=== PATIENT | female | born 1960 | race Caucasian/White ===

== ENCOUNTER 2017-04-26 15:44 | Inpatient (IN) | payer OTHER ==
[~2017-04-26] VITALS: Ht 167.6 cm; Wt 92.3 kg
[~2017-04-26 15:44] MED LIST: CEPH500C3 PO; VIVELLE
--- NOTE | 2017-05-11 06:24 | MH ---
cc: JHONY LAZO M.D. DATE OF ADMISSION: 05/11/2017 ADMITTING DIAGNOSIS Lumbar spinal stenosis with instability. HISTORY This patient is a 57-year-old female with significant back, hip and leg pain. Investigative studies shows evidence of high-grade stenosis at the L4-5 level with associated instability. There is evidence of foraminal stenosis as well. The patient has significant hip and leg pain. She presents for surgical treatment. PAST MEDICAL HISTORY, SOCIAL HISTORY, FAMILY HISTORY, REVIEW OF SYSTEMS See attached notes. PHYSICAL EXAMINATION GENERAL: A 57-year-old female in moderate distress with her back, hip and leg. HEENT: Normocephalic, atraumatic. Pupils equal, round, reactive to light and accommodation. Extraocular motions intact. NECK: Supple. CHEST: Clear. HEART: Regular rate and rhythm. ABDOMEN: Soft, nontender with normoactive bowel sounds. MUSCULOSKELETAL EXAMINATION: Thoracolumbar spine with restricted motion, pain with range of motion. Ssikdymb-zgf-ryavx is positive. Motor examination shows mild weakness of the extensor hallucis longus. IMPRESSION 1. Lumbar spinal stenosis L4-5. 2. Lumbar radiculopathy. 3. Lumbar instability. PLAN Bilateral lumbar laminectomy L4-L5 from the left, lateral recess decompression, subtotal facet resection, posterior spinal fusion L4-5, posterolateral interbody fusion, interbody cage, instrumentation, bone grafting. CONSENT There are risks with surgery including infection, bleeding, loss of motion, continued pain, need for further surgery, neurologic and vascular injury. The patient understands these issues and wishes to press on with the surgery as outlined above. MD NIKO Castillo/SUNNY /11:08 PM /6:23 AM
[2017-05-11 11:25] VITALS: BP 125/83; PULSE 72; RESP 20; TEMP 98.6; O2SAT 99
[2017-05-11] MEDS ORDERED: ePHEDrine/NS 25 MG/5 ML SYR IV ONE (12:00)
[2017-05-11] MEDS ORDERED: ONDANSETRON HCL 4 MG/2 ML VIAL IV PUSH ONE (12:00)
[2017-05-11] MEDS ORDERED: NEOSTIGMINE 3 MG/3 ML SYR IV ONE (12:00)
[2017-05-11] MEDS ORDERED: PROPOFOL 200 MG/20 ML AMP IV ONE (12:00)
[2017-05-11] MEDS ORDERED: WELLTAB39 PO (12:16)
[2017-05-11] MEDS ORDERED: VIVE0.05 T-DERMAL (12:16)
[2017-05-11] MEDS ORDERED: ALPR.5 PO (12:16)
[2017-05-11] MEDS ORDERED: TRAM50TA PO (12:16)
[2017-05-11] MEDS ORDERED: INSULIN HUMAN REGULAR 1,000 UNITS/10 ML VIAL SQ PRN (12:30)
[2017-05-11] MEDS ORDERED: METOPROLOL TARTRATE 25 MG TAB PO PRN (12:30)
[2017-05-11] MEDS ORDERED: POVIDONE IODINE 5% (ANTISEPSIS KIT) 4 APPLICATIONS EACH NARE PRN (12:30)
[2017-05-11] MEDS ORDERED: SODIUM CHLORID 0.9% 500 ML IV PRN (12:30)
[2017-05-11] MEDS ORDERED: CHLORHEXIDINE GLUCONATE 2 % 1 PACK (2 CLOTHS) TOPICAL PRN (12:30)
[2017-05-11] MEDS ORDERED: LACTATED RINGER'S 1000 ML IV PRN (12:30)
[2017-05-11] MEDS ORDERED: SODIUM CHLOR 0.9% 250 ML INJ 250 ML ONE (12:38)
[2017-05-11] MEDS ORDERED: VANCOMYCIN HCL 1000 MG VIAL ONE (12:38)
[2017-05-11] MEDS ORDERED: ceFAZolin 2 GM PREMIX 50 ML IV SCH (12:45)
[2017-05-11] MEDS ORDERED: VANCOMYCIN 1000 MG/NS 250 ML (for <70 kg) IV SCH ×2 (12:45)
[2017-05-11] MEDS ORDERED: POVIDONE IODINE 7.5% SCRUB 118 ML BOTTLE TOPICAL SCH (12:45)
[2017-05-11] MEDS ORDERED: FAMOTIDINE 20 MG/2 ML VIAL ONE (14:48)
[2017-05-11] MEDS ORDERED: MIDAZOLAM HCL 2 MG/2 ML VIAL ONE ×2 (14:48→15:00)
[2017-05-11] MEDS ORDERED: GENTAMICIN SULFATE 80 MG/2 ML VIAL ONE (14:55)
[2017-05-11] MEDS ORDERED: fentaNYL CITRATE 250 MCG/5 ML AMP ONE (15:00)
[2017-05-11] MEDS ORDERED: ACETAMINOPHEN 1000 MG/100 ML VIAL IV ONE (15:01)
[2017-05-11] MEDS ORDERED: DEXAMETHASONE SOD PHOS 4 MG/ML VIAL ONE (15:01)
[2017-05-11] MEDS ORDERED: SOD PHOSPHATE/SOD BIPHOSPHATE (ADULT) ENEMA 133ML PR PRN (19:30)
[2017-05-11] MEDS ORDERED: ALUMINUM/MAGNESIUM/SIMETH 30 ML CUP PO PRN (19:30)
[2017-05-11] MEDS ORDERED: Post-op Orders (for Pharmacy) MISC XX ONE (19:30)
[2017-05-11] MEDS ORDERED: ONDANSETRON HCL 4 MG/2 ML VIAL IV PRN (19:30)
[2017-05-11] MEDS: LACTATED RINGER'S 1000 ML INJ 1,000 ML IV SCH ×2 (19:30→22:02)
[2017-05-11] MEDS ORDERED: SODIUM CHLORIDE 0.9% FLUSH 5 ML FLUSH IVF PRN (19:30)
[2017-05-11] MEDS ORDERED: MORPHINE SULFATE 8 MG/ML INJ IV PUSH PRN (19:30)
[2017-05-11] MEDS ORDERED: BISACODYL 10 MG SUPP RECTAL PRN (19:30)
[2017-05-11] MEDS ORDERED: NALOXONE HCL 0.4 MG/ML AMP IV PRN (19:30)
--- NOTE | 2017-05-11 19:33 | PD.OP ---
cc: Kishore Flynn. Operative Report Date of Surgery: May 11, 2017 Preoperative Diagnosis: Lumbar spinal stenosis, L4 5. Lumbar instability, L4 5. Extradural lesion, L4 5. Bilateral lumbosacral radiculopathy Postoperative Diagnosis: Same. Fracture left L4 inferior articular facet Procedure: Bilateral lumbar laminectomy from the left L4, L5 with resection of extradural lesion and bilateral lateral recess decompression. Subtotal facet resection left L4 5. Posterior spinal fusion, L4 5. Posterior spinal segmental instrumentation L4 5. Posterior lateral interbody fusion. Placement of interbody cage, L4 5. Major bone grafting of the lumbar spine. Use of dilation port and microscope Anesthesia: Gen. Surgeon: Kishore Flynn Slip Mixer(s): ADRIENNE Deutsch Operation and Findings: EBL: 200 ml NOTE: Debra Deutsch PA-C was present for the entire surgical procedure as my maintenance assistant. In my medical opinion her skill and care was necessary for proper management of this patient INDICATIONS: This patient is a 49-year-old female with significant back radiating leg pain with weakness. Studies shows evidence of significant widening of the facet joints at L4 5 associated with an extradural lesion creating a high-grade central and bilateral lateral recess stenosis at L4 5. The patient presents for the above procedure. INSTRUMENTATION: Spine wave PROCEDURE: The patient brought to the operating room and anesthetized the supine position. The patient positioned prone on the Duane frame on the Benedict table. All pressure points are protected. The back was scrubbed with alcohol followed by Hibiclens followed by ChloraPrep and draped sterilely and antibiotics were given within a routine time window. A timeout was done. Lateral radiographic images used to identify the proper level for the procedure. Compared care for the preoperative studies. Skin markings were made anticipating surgical treatment. A left paramedian incision was made. The lamina and facet joint was exposed. We used the dilating retractor which was positioned over this region. The microscope was rolled into the field for visualization. A high-speed bur was used to take the lamina down and doing a subtotal facet resection. There was a moderate to large central ganglion cyst which was extradural. This was adherent to the dura midline. We worked over the top and below and above this to create a dissection plane between the lesion and the dura. This was freed up completely and taken to the back table. This was sent down to pathology. A bilateral lateral recess stenosis was accomplished. The exiting and crossing nerve roots were completely decompressed. A total discectomy was accomplished. The disc space was prepared. All cartilaginous material from the disc space was removed. A combination of demineralized bone matrix and Nucel stem cells were mixed together on the back table. These were injected into the disc space. The cage was then placed according to assistant chief engineer's recommendation and deployed. Position was satisfactory. Additional bone graft was placed into the disc space. The outer edge of the facet joint was identified and prepared. Under fluoroscopic images, a bur was used to gain entrance into the pedicle followed by placement of a blunt probe, an awl and placement of proper length screws. Each screw was charged with electric current there are no abnormal potentials registered in either lower extremity. A proper length ritchie was fitted and attached and tightened according to assistant chief engineer's recommendation. The wound was irrigated copiously. Bone grafting was placed along the lateral gutter in the region of the transverse process across this level. This was closed in layers with #1 Vicryl, 2-0 Vicryl and running intradermal 3-0 Vicryl followed by Steri-Strips and benzoin. On the contralateral side a separate exposure was made. The outer edge of the facet joints were identified. A bur was used to gain entrance into the pedicle followed by placement of a probe and proper length screws. Each screw was charged with electric current and no abnormal potentials registered in either lower extremity. The wound was irrigated copiously. Bone graft placed along the transverse process across this level. It was closed in layers using #1 Vicryl, 2-0 Vicryl and running intradermal 3-0 Vicryl followed by Steri-Strips and benzoin. Intraoperative radiographs were obtained. No complication was appreciated. The patient had a sterile dressing applied. The patient was awakened and taken to recovery room in satisfactory condition. FINDINGS: There was evidence of a fracture of the inferior articular facet of L4 which was a surprise. This was an unstable joint related to the spondylolisthesis and the fracture. The extradural lesion was likely a ganglion cyst. This created a significant central stenosis. The final decompression was very satisfactory. The final cage placement and fusion was also very satisfactory. Kishore Flynn MD May 11, 2017 19:33
[2017-05-11] MEDS ORDERED: HYDR-3580 PO (19:35)
[2017-05-11] MEDS ORDERED: DO NOT ADM ANY ANTICOAGULANT DRUGS PRN (19:36)
[2017-05-11] MEDS ORDERED: MORPHINE SULFATE 4 MG/ML INJ ONE (19:46)
[2017-05-11] MEDS ORDERED: *morphine SULFATE 8 MG/ML PERIprocedure ONLY ONE (19:51)
--- NOTE | 2017-05-11 20:20 | RADRPT ---
EXAM DATE/TIME: 05/11/2017 18:55 [facility] COMPARISON: No previous studies available for comparison. INDICATIONS : L4-5 Fusion. MEDICAL HISTORY : Arrythmia. SURGICAL HISTORY : section. Hysterectomy. ENCOUNTER: Initial ACUITY: 1 day PAIN SCORE: Non-responsive. LOCATION: Lumbar spine. FINDINGS: 2 magnified C-arm spot views show bilateral transpedicular posterior fixation at L4-L5. There is an i ntervening bone graft device as well as bilateral vertical stabilizing bars. Good alignment. CONCLUSION: Limited images as detailed above. Rajeev Chowdhury Jr., MD on May 11, 2017 at 20:18 Board Certified Radiologist. This report was verified electronically.
[2017-05-11] MEDS: MORPHINE SULFATE 30 MG/30 ML PCA IV SCH (20:44)
[2017-05-11] MEDS ORDERED: ZOLPIDEM TARTRATE 5 MG TAB PO PRN (21:00)
[2017-05-11] MEDS: SODIUM CHLORIDE 0.9% FLUSH 5 ML FLUSH IVF SCH (21:00)
[2017-05-11 21:31] VITALS: BP 142/79; PULSE 86; RESP 22; TEMP 96.4; O2SAT 98
[2017-05-11] MEDS: PCA - TOTAL MG MORPHINE DELIVERED PER SHIFT SCH (22:00)
[2017-05-11] MEDS: ACETAMINOPHEN/HYDROcodone 325 MG/7.5 MG TAB PO PRN (22:00)
[2017-05-12] VITALS (7 sets, daily range): BP systolic 99–108; BP diastolic 56–63; PULSE 65–85; RESP 18–21; TEMP 96–97.1; O2SAT 95–100
[2017-05-12] MEDS: ACETAMINOPHEN/HYDROcodone 325 MG/7.5 MG TAB PO PRN ×5 (00:07→22:45)
[2017-05-12] MEDS: PCA - TOTAL MG MORPHINE DELIVERED PER SHIFT SCH (05:05)
[2017-05-12] MEDS: MORPHINE SULFATE 30 MG/30 ML PCA IV SCH (06:35)
[2017-05-12 08:23] LABS: HEMATOCRIT 35.4 % (35.0-46.0); REVIEW FLAG FINAL
[2017-05-12] MEDS: SODIUM CHLORIDE 0.9% FLUSH 5 ML FLUSH IVF SCH ×2 (09:00→22:45)
[2017-05-12] MEDS: buPROPion HCL 150 MG SUSTAINED RELEASE TAB PO SCH ×2 (09:25→22:44)
[2017-05-12] MEDS ORDERED: WALKER WHEELS/F1 MIS (11:13)
[2017-05-12] MEDS ORDERED: COMMODE 3-IN-11 MIS (11:14)
--- NOTE | 2017-05-12 11:18 | HHI.DS ---
Discharge Summary Admission Date May 11, 2017 at 11:04 Discharge Date: May 13, 2017 Admitting Diagnosis see below Diagnosis: (1) Lumbar spinal stenosis Diagnosis: Principal (2) Degeneration of intervertebral disc of lumbar region Diagnosis: Principal Procedures Bilateral Laminectomy L45 from left, resection ganglion cyst; Posterior lumbar fusion L45 with posterior instrumentation and interbody cage, bone graft. Brief History This is a 57 year old female patient With a one-year history of back and leg pain.She was treated conservatively by her primary care physician utilizing anti -inflammatories and prescription strength diclofenac. She continued to decline so she sought out further treatment. Imaging studies were performed showing significant spinal stenosis L4-5 with ganglion cyst formation at that level and significant degenerative disc disease. She pursued epidural steroid injections with only temporary relief. Eventually surgical treatment was recommended in the form of laminectomy and fusion. She presents for the above procedure. CBC/BMP: 05/12/17 0713 Hospital Course Surgical treatment was performed on the day of admission without complication. She recovered well in PACU and was transferred to the orthopaedic floor. Pain was controlled with IV and oral medications. She struggled with spasms so she was placed on flexeril. She was compliant with physical therapy and all restrictions. She was compliant with her brace. After --2--- days she was found to be stable and discharged home with home health care. She was instructed to continue therapy, pursue a high fiber diet for 3-5 days and to continue her brace for 10-12 weeks postop. She was supplied with prescriptions of [place] and Flexeril. Pt Condition on Discharge: Stable Discharge Disposition: Disch w/ Home Health Serv Discharge Instructions Diet Instructions: As Tolerated, No Restrictions, High Fiber Diet Activities You Can Perform: Weight Bearing as Arya, See Additionl Instruction Activities to Avoid: Strenuous Activity Additional Activity Instruc.: Brace when out of bed for 10-12 weeks New Medications: Commode 3-in-1 (Commode 3-in-1) 1 Mis Mis 1 EA .ROUTE DIRECTED #1 Ref 0 EA Walker with Front Wheels (Walker with Front Wheels) 1 Mis Mis 1 EA .ROUTE DIRECTED #1 Ref 0 EA Cyclobenzaprine (Flexeril) 10 Mg Tab 5 MG PO Q8H PRN spasms #30 TAB Hydrocodone-Acetaminophen (Hydrocodone-Acetaminophen) 7.5-325 mg Tab 1 TAB PO Q4H PRN PAIN SCALE 1 TO 5 #50 TAB Continued Medications: Alprazolam (Xanax) 0.5 Mg Tab 0.5 MG PO Q4H PRN ANXIETY Ref 0 TAB Bupropion HCl ER 24 HR (Wellbutrin Xl 24 HR) 300 Mg Tab 300 MG PO DAILY Control Depression Ref 0 TAB Cephalexin (Keflex) 500 Mg Cap 500 MG PO QID Days 7 CAP Estradiol-Dot Patch 84 HR (Vivelle-Dot Patch 84 HR) 0.05 Mg/24 Hr Patch 1 PATCH T-DERMAL 2XWEEK Remove old patch and discard when new patch being placed. Change same days each week. Estrogen Supplements #8 Ref 0 PATCH Tramadol (Tramadol) 50 Mg Tab 50 MG PO Q6H PRN PAIN Ref 0 TAB ([Vivelle]) Yahaira Patel May 12, 2017 11:18
--- NOTE | 2017-05-12 11:19 | HHI.DCPOC ---
Discharge Care Plan Diagnosis: (1) Lumbar spinal stenosis (2) Degeneration of intervertebral disc of lumbar region Your Health Problems Are: Incision/Drains Inflammation Goals to Promote Your Health * To prevent worsening of your condition and complications * To maintain your health at the optimal level Directions to Meet Your Goals Take your medications as prescribed Follow your dietary instruction Follow activity as directed Keep your appointments as scheduled Take your immunizations and boosters as scheduled If your symptoms worsen call your PCP, if no PCP go to Urgent Care Center or Emergency Room Smoking is Dangerous to Your Health. Avoid second hand smoke Call the 24-hour hour crisis hotline for domestic abuse at Yahaira Patel May 12, 2017 11:19
--- NOTE | 2017-05-12 11:20 | HHI.FF ---
Face to Face Verification Diagnosis: (1) Lumbar spinal stenosis (2) Degeneration of intervertebral disc of lumbar region Physical Therapy Gait training, Safety evaluation S/P Spinal Fusion: Gait training with walker, Weight bearing as tolerated, No twisting of torso, No bending Additional Instructions PT 4 days/wk for 1 week. WBAT. Out of bed with lumbar brace for 10-12 weeks. Gait training / transfers. Nursing RN Days per Week: 4 x Week(s): 1 Dressing Changes: Daily dressing change, 4x4s Additional Instructions Dry dressing changes daily w Covaderm and 4x4s. . Vitals assessment. I have seen patient Elizabeth Landin on 05/12/17. My clinical findings support the need for the requested home health care services because: Limited ability to care for self High risk of falls I certify that my clinical findings support that this patient is homebound because: Post-op weakness Unsteady gait/balance Yahaira Patel May 12, 2017 11:20
--- NOTE | 2017-05-12 12:59 | PD.ORT.PN ---
Subjective Subjective Remarks Moderate low back pain. legs feel 'fine'. No new complaints. She did feel a little 'jostled' when the GEM STONE CUTTER helped her back into bed and used the blanket. Questions about surgery and pain medications. Objective Vitals Vital Signs Date Time Temp Pulse Resp B/P Pulse Ox O2 Delivery O2 Flow Rate FiO2 05/12/17 09:57 96 Nasal Cannula 3.00 05/12/17 08:00 96.7 65 18 102/59 100 05/12/17 03:36 96.7 85 19 108/56 95 05/12/17 00:47 96.7 83 21 107/60 96 05/11/17 21:31 96.4 86 22 142/79 98 05/11/17 20:44 22 05/11/17 20:35 Nasal Cannula 2.00 05/11/17 20:30 66 25 125/76 97 Nasal Cannula 2 05/11/17 20:15 97.7 66 26 125/71 97 Nasal Cannula 2 05/11/17 20:00 71 19 118/71 97 Nasal Cannula 2 05/11/17 19:57 19 05/11/17 19:45 77 17 114/68 97 Nasal Cannula 2 05/11/17 19:39 80 22 121/74 98 Nasal Cannula 2 05/11/17 19:38 97.9 98 26 119/73 98 Nasal Cannula 2 I/O 05/11/17 05/11/17 05/11/17 05/12/17 05/12/17 05/12/17 07:00 15:00 23:00 07:00 15:00 23:00 Intake Total 1834 ml 964 ml Output Total 750 ml 550 ml Balance 1084 ml 414 ml Intake Oral 240 ml 360 ml IV Total 194 ml 604 ml Other 1400 ml Output Urine Total 250 ml 550 ml Estimated Blood Loss 200 ml Other 300 ml # Bowel Movements 0 0 Result Diagram: 05/12/17 0713 Procedures Posterior lumbar fusion L45... Objective Remarks Sitting up in bed, Daughter at bedside NAD VSS L/S Dressing c/d/i, mild SS drainage, mild spasms paraspinals, no erythema +motor at / ehl, +sens, +nvi neg homans bilat Assessment & Plan Ortho Post Op Day #: 1 Problem List: (1) Lumbar spinal stenosis (2) Degeneration of intervertebral disc of lumbar region Assessment and Plan pod#1 s/p Lami Fusion L45, rsxn ganglion cyst. D/C [employer] - change to po pain meds Add flexeril 5 mg q8h as needed for spasms Dry dressing changes beginning pod#2. OOB w brace for 10-12 weeks. D/C planning, likely [facility] tomorrow. F2F written. Yahaira Patel May 12, 2017 12:58
[2017-05-12] MEDS: DOCUSATE SODIUM 100 MG CAP PO SCH (22:44)
[2017-05-13] VITALS (7 sets, daily range): BP systolic 109–136; BP diastolic 60–73; PULSE 67–93; RESP 18; TEMP 96.5–97.8; O2SAT 95–100
[2017-05-13] MEDS: LACTATED RINGER'S 1000 ML INJ 1,000 ML IV SCH ×3 (00:08→21:26)
[2017-05-13] MEDS: ACETAMINOPHEN/HYDROcodone 325 MG/7.5 MG TAB PO PRN ×5 (05:14→22:53)
[2017-05-13] MEDS ORDERED: CYCL1TAB29 PO (08:28)
--- NOTE | 2017-05-13 08:41 | PD.ORT.PN ---
Subjective Subjective Remarks She struggled quite a bit last night. She was taking 2 pills every 6 hours but states she prefers one every 4. She continues to have moderate to sharp low back pain. Her leg pain is stable. No new complaints. She denies any new CP or SOB. Objective Vitals Vital Signs Date Time Temp Pulse Resp B/P Pulse Ox O2 Delivery O2 Flow Rate FiO2 05/13/17 00:14 97.8 67 18 109/62 95 05/12/17 20:01 97.1 72 18 105/59 97 05/12/17 16:00 96.8 66 18 108/63 95 05/12/17 12:00 96.0 67 18 99/58 96 05/12/17 09:57 96 Nasal Cannula 3.00 I/O 05/12/17 05/12/17 05/12/17 05/13/17 05/13/17 05/13/17 07:00 15:00 23:00 07:00 15:00 23:00 Intake Total 964 ml 960 ml 360 ml Output Total 550 ml 250 ml Balance 414 ml 710 ml 360 ml Intake Oral 360 ml 960 ml 360 ml IV Total 604 ml Output Urine Total 550 ml 250 ml # Voids 4 3 # Bowel Movements 0 0 0 Result Diagram: 05/12/17 0713 Procedures Bilateral Laminectomy L45 from left, resection ganglion cyst; Posterior lumbar fusion L45 with posterior instrumentation and interbody cage, bone graft. Objective Remarks Sitting up in bed, NAD VSS L/S Dressing c/d/i, no new drainage, mild spasms paraspinals again present, no erythema +motor at / ehl, +sens, +nvi neg homans bilat Assessment & Plan Ortho Post Op Day #: 2 Problem List: (1) Lumbar spinal stenosis (2) Degeneration of intervertebral disc of lumbar region Assessment and Plan pod#2 s/p Lami Fusion L45, rsxn ganglion cyst. Continue PO pain meds. I encouraged her to also take the Flexeril for spasms. Dry dressing changes beginning today then daily. OOB w brace for 10-12 weeks. High fiber diet for 3-5 days. D/C planning, likely [facility] today as long as pain is moderately controlled. F2F written. Yahaira Patel May 13, 2017 08:41
[2017-05-13] MEDS: CYCLOBENZAPRINE HCL 10 MG TAB PO PRN ×2 (08:45→17:34)
[2017-05-13] MEDS: SODIUM CHLORIDE 0.9% FLUSH 5 ML FLUSH IVF SCH ×2 (08:45→21:00)
[2017-05-13] MEDS: buPROPion HCL 150 MG SUSTAINED RELEASE TAB PO SCH ×2 (08:45→21:48)
[2017-05-13] MEDS: DOCUSATE SODIUM 100 MG CAP PO SCH ×2 (08:45→21:48)
[2017-05-13] MEDS: ALPRAZolam 0.5 MG TAB PO PRN ×3 (11:08→18:54)
[2017-05-14 00:16] VITALS: BP 122/71; PULSE 83; RESP 18; TEMP 98.8; O2SAT 98
[2017-05-14] MEDS: ACETAMINOPHEN/HYDROcodone 325 MG/7.5 MG TAB PO PRN ×3 (02:59→12:05)
[2017-05-14 04:13] VITALS: BP 124/74; PULSE 83; RESP 18; TEMP 98; O2SAT 98
[2017-05-14] MEDS: CYCLOBENZAPRINE HCL 10 MG TAB PO PRN (06:06)
[2017-05-14 07:51] VITALS: O2SAT 97
[2017-05-14 07:52] VITALS: BP 121/81; PULSE 89; RESP 16; TEMP 98; O2SAT 98
--- NOTE | 2017-05-14 07:59 | PD.ORT.PN ---
Subjective Subjective Remarks She is doing better. She feels much more confident and feels her pain is better controlled. The flexeril has been helpful. No new complaints. She denies any new CP or SOB. Objective Vitals Vital Signs Date Time Temp Pulse Resp B/P Pulse Ox O2 Delivery O2 Flow Rate FiO2 05/14/17 07:51 97 21 05/14/17 04:13 98.0 83 18 124/74 98 05/14/17 00:16 98.8 83 18 122/71 98 05/13/17 20:30 97.8 93 18 136/73 100 05/13/17 19:54 18 05/13/17 19:28 98 21 05/13/17 15:01 97.8 84 18 124/69 98 05/13/17 11:05 96.8 78 18 119/62 98 I/O 05/13/17 05/13/17 05/13/17 05/14/17 05/14/17 05/14/17 07:00 15:00 23:00 07:00 15:00 23:00 Intake Total 360 ml 720 ml 240 ml 240 ml Balance 360 ml 720 ml 240 ml 240 ml Intake Oral 360 ml 720 ml 240 ml 240 ml # Voids 3 4 2 1 # Bowel Movements 0 0 0 0 Result Diagram: 05/12/17 0713 Procedures Bilateral Laminectomy L45 from left, resection ganglion cyst; Posterior lumbar fusion L45 with posterior instrumentation and interbody cage, bone graft. Objective Remarks Sitting up in bed, Daughter at bedside NAD VSS L/S Dressing c/d/i, no new drainage, spasms less prominent, no erythema +motor at / ehl, +sens, +nvi neg homans bilat Assessment & Plan Ortho Post Op Day #: 3 Problem List: (1) Lumbar spinal stenosis (2) Degeneration of intervertebral disc of lumbar region Assessment and Plan pod#3 s/p Lami Fusion L45, rsxn ganglion cyst. Pain controlled. Ok for d/c home today. [facility] orders written. Would like an elevated toilet seat. Order written. PO pain meds. Flexeril for spasms. Dry dressing changes daily. OOB w brace for 10-12 weeks. High fiber diet for 3-5 days. F/U in 2 weeks as scheduled. F2F written. Yahaira Patel May 14, 2017 07:59
[2017-05-14] MEDS: SODIUM CHLORIDE 0.9% FLUSH 5 ML FLUSH IVF SCH (09:00)
[2017-05-14] MEDS: DOCUSATE SODIUM 100 MG CAP PO SCH (09:00)
[2017-05-14] MEDS: buPROPion HCL 150 MG SUSTAINED RELEASE TAB PO SCH (09:00)
[2017-05-14] MEDS: LACTATED RINGER'S 1000 ML INJ 1,000 ML IV SCH (09:56)
[2017-05-14 11:03] VITALS: BP 112/68; PULSE 87; RESP 16; TEMP 97.9; O2SAT 97
== END 2017-05-14 12:24 | disposition home health service (06) | DRG 460 ==
LOC: HSDI 05-11 11:04 → N06B 05-11 20:52
PROVIDERS: ADMIT Orthopaedic Surgery Orthopaedic Surgery of the Spine; ATTEND Orthopaedic Surgery Orthopaedic Surgery of the Spine
PROC: 0ST20ZZ Resection of Lumbar Vertebral Disc, Open Approach (ICD-10-PCS; 2017-05-11)
PROC: 0SB00ZZ Excision of Lumbar Vertebral Joint, Open Approach (ICD-10-PCS; 2017-05-11)
PROC: 0SG00AJ Fusion of Lumbar Vertebral Joint with Interbody Fusion Device, Posterior Approach, Anterior Column, Open Approach (ICD-10-PCS; principal; 2017-05-11 15:26)
DX: M51.36 Other intervertebral disc degeneration, lumbar region (principal); M53.2X6 Spinal instabilities, lumbar region; M48.06 Spinal stenosis, lumbar region; M54.17 Radiculopathy, lumbosacral region; M67.48 Ganglion, other site; M43.16 Spondylolisthesis, lumbar region
CPT/HCPCS: 72100; 76000; 85014; 85018; 86850; 86900; 86901; 88304; 94150; C1713; J0131; J0690; J1100; J1580; J2250; J2270; J2405; J2710; J3010; J3370; J7050; J7120